=== PATIENT | female | born 1945 | race Caucasian/White ===

== ENCOUNTER 2016-11-13 06:29 | Day surgery (SDC) | payer MEDICARE, OTHER ==
--- NOTE | ~2016-11-13 | EGD ---
EGD REPORT [facility] [address] [place] [address] NAME: SUSIE GAY : [birth year] STATUS : REG [facility] [id number] AGE: 71 ADM/REG DATE : 11/13/16 MR#: [id number] REPORT SERV DATE: 11/13/16 DICTATED BY: BETSY STEVENSON DATE: 11/13/16 REPORT STATUS : Draft TRANSCRIBED BY: [facility] DATE: 11/13/16 Endoscopy Center Patient Name: Susie Gay Date of : 1945 Attending MD: BETSY STEVENSON, Procedure Date No Time: 11/13/2016 Procedure: Upper EUS Indications: Submucosal tumor versus extrinsic mass found on endoscopy. History of prior resected duodenal bulb carcinoid. Referring MD: SERENA CARTER Complications: No immediate complications. Estimated blood loss: None. Procedure: Pre-Anesthesia Assessment: - ASA Grade Assessment: II - A patient with mild systemic disease. After obtaining informed consent, the endoscope was passed under direct vision. Throughout the procedure, the patient's blood pressure, pulse, and oxygen saturations were monitored continuously. The Endoscope was introduced through the mouth, and advanced to the second part of duodenum. The GIF [id number] was introduced through the mouth, and advanced to the second part of duodenum. Findings: Endoscopic Finding : The examined esophagus was endoscopically normal. The entire examined stomach was endoscopically normal. The cardia and gastric fundus were normal on retroflexion. A single 6 mm sessile polyp with was found in the duodenal bulb. This was on the edge of the prior scar. Biopsies were taken with a cold forceps for histology. Verification of patient identification for the specimen was done. Estimated blood loss was minimal. A single medium-sized scar was found in the duodenal bulb. Biopsies were taken with a cold forceps for histology. Verification of patient identification for the specimen was done. Estimated blood loss was minimal. Endosonographic Finding : There was no sign of significant endosonographic abnormality in the esophagus. Endosonographic images of the stomach were unremarkable. An oval intramural (subepithelial) lesion was found in the duodenal bulb. The lesion was hypoechoic. Endosonographically, the lesion appeared to originate from within the submucosa (Layer 3). The lesion also appeared to involve the following wall layer(s): muscularis propria EGD REPORT [place] [address] [facility] [place]. [address] NAME: SUSIE GAY : [birth year] STATUS : REG [facility] PAT#: [id number] AGE: 71 ADM/REG DATE : 11/13/16 MR#: [id number] REPORT SERV DATE: 11/13/16 DICTATED BY: BETSY STEVENSON DATE: 11/13/16 REPORT STATUS : Draft TRANSCRIBED BY: [employer] DATE: 11/13/16 (Layer 4). The lesion measured 8 mm (in maximum thickness). The lesion also measured 4 mm in diameter. There was no sign of significant endosonographic abnormality in the entire pancreas. The pancreas was well visualized, no pathologic lymphadenopathy, no masses, no calcifications, the pancreatic duct was well visualized from ampulla to tail, the pancreatic duct was regular in contour. There was no sign of significant endosonographic abnormality in the common bile duct. No lymphadenopathy seen. Impression: - Normal esophagus. - Normal stomach. - A single duodenal polyp. Biopsied. - Duodenal scar. - There was no sign of significant pathology in the esophagus. - Endosonographic images of the stomach were unremarkable. - An intramural (subepithelial) lesion was found in the duodenal bulb. The lesion appeared to originate from within the submucosa (Layer 3). - There was no sign of significant pathology in the entire pancreas. - There was no sign of significant pathology in the common bile duct. Recommendation: - Await path results. - Return to previous diet. - Continue present medications. - Given there appears to be residual carcinoid on EUS with involvement of the muscularis propria she will likely need surgical excision. Procedure Code(s): --- Professional --- 51216, Esophagogastroduodenoscopy, flexible, transoral; with endoscopic ultrasound examination, including the esophagus, stomach, and either the duodenum or a surgically altered stomach where the jejunum is examined distal to the anastomosis Diagnosis Code(s): --- Professional --- K31.7, Polyp of stomach and duodenum K31.89, Other diseases of stomach and duodenum K31.9, Disease of stomach and duodenum, unspecified K92.9, Disease of digestive system, unspecified EGD REPORT [facility] [address] [address] NAME: SUSIE GAY : [birth year] STATUS : REG [facility] PAT#: [id number] AGE: 71 ADM/REG DATE : 11/13/16 MR#: [id number] REPORT SERV DATE: 11/13/16 DICTATED BY: BETSY STEVENSON DATE: 11/13/16 REPORT STATUS : Draft TRANSCRIBED BY: [employer] DATE: 11/13/16 CPT copyright 2013 [employer]. All rights reserved. The codes documented in this report are preliminary and upon hcc coders review may be revised to meet current compliance requirements. BETSY STEVENSON, 11/13/2016 9:00 AM Number of Addenda: 0 Note Initiated On: 11/13/2016 8:24 AM Scope Withdrawal Time 0 hours 0 minutes 0 seconds [facility] [address] [address]
[~2016-11-13 06:29] MED LIST: HYZAAR 50/12.51 TAB PO; PROTONIX PO
[2016-11-13 07:11] LABS: BUN (BLOOD UREA NITROGEN) 30 MG/DL (6-23); CALCIUM, SERUM 9.1 MG/DL (8.5-10.4); CHLORIDE, SERUM 105 MMOL/L (96-112); CO2 (CARBON DIOXIDE) 27 MMOL/L (24-34); CREATININE 1.05 MG/DL (0.55-1.02); GFR AFRICAN AMERICAN 62 ML/MIN (>=60); GFR NON AFRICAN AMERICAN 53 ML/MIN (>=60); GLUCOSE, SERUM 102 MG/DL (60-99); SODIUM, SERUM 140 MMOL/L (135-148)
[2016-11-13 07:13] LABS: POTASSIUM, SERUM 3.9 MMOL/L (3.5-5.3)
== END 2016-11-13 23:59 | disposition home or self-care (01) ==
LOC: DMU 06:29
PROVIDERS: Anesthesiology; Internal Medicine Gastroenterology
PROC: 0DJ08ZZ Inspection of Upper Intestinal Tract, Via Natural or Artificial Opening Endoscopic (ICD-10-PCS; 2016-11-13)
PROC: BD47ZZZ Ultrasonography of Gastrointestinal Tract (ICD-10-PCS; 2016-11-13)
PROC: 0DB98ZX Excision of Duodenum, Via Natural or Artificial Opening Endoscopic, Diagnostic (ICD-10-PCS; principal; 2016-11-13 08:00)
DX: K29.80 Duodenitis without bleeding (principal); K31.7 Polyp of stomach and duodenum; K21.9 Gastro-esophageal reflux disease without esophagitis; I10 Essential (primary) hypertension; Z79.899 Other long term (current) drug therapy; Z97.2 Presence of dental prosthetic device (complete) (partial); Z90.49 Acquired absence of other specified parts of digestive tract; Z98.890 Other specified postprocedural states; Z96.693 Finger-joint replacement, bilateral
CPT/HCPCS: 80048; 88305

== ENCOUNTER 2017-01-19 06:03 | Inpatient (IN) | payer MEDICARE, OTHER ==
[2017-01-12 09:40] LABS: BASOPHILS 0.3 %; BASOPHILS ABSOLUTE 0.02 10/3/uL (0.0-0.16); EOSINOPHILS 2.1 %; EOSINOPHILS ABSOLUTE 0.15 10/3/uL (0.0-0.53); HEMATOCRIT 40.8 % (36.0-48.0); HEMOGLOBIN 13.1 g/dL (12.0-16.0); IMMATURE GRANULOCYTES 0.1 %; IMMATURE GRANULOCYTES ABSOLUTE 0.01 10/3/uL (0.0-0.11); LYMPHOCYTES 29.9 %; LYMPHOCYTES ABSOLUTE 2.13 10/3/uL (0.67-4.30); MEAN CORPUS HGB CONC 32.1 g/dL (32.0-36.0); MEAN CORPUSCULAR HEMOGLOB 28.6 pg (26.0-34.0); MEAN CORPUSCULAR VOLUME 89.1 fL (80-100); MEAN PLATELET VOLUME 9.4 fL (9.2-13.0); NEUTROPHILS 60.6 %; NEUTROPHILS ABSOLUTE 4.32 10/3/uL (2.02-8.40); PLATELET COUNT 272 10/3/uL (150-400); RBC DISTRIBUTION WIDTH 13.3 % (12.0-16.0); RED CELL COUNT 4.58 10/6/uL (4.0-5.6); WHITE BLOOD CELLS 7.1 10/3/uL (4.5-10.5)
[2017-01-12 09:45] LABS: MANUAL DIFF NO %
[2017-01-12 09:57] LABS: A/G RATIO 0.9 (0.7-1.9); ALBUMIN 3.4 G/DL (3.5-5.0); ALKALINE PHOSPHATASE 90 U/L (45-117); CHLORIDE, SERUM 109 MMOL/L (96-112); CO2 (CARBON DIOXIDE) 31 MMOL/L (24-34); CREATININE 0.76 MG/DL (0.55-1.02); GFR AFRICAN AMERICAN 91 ML/MIN (>=60); GFR NON AFRICAN AMERICAN 79 ML/MIN (>=60); GLOBULIN 3.8 G/DL (2.5-4.1); GLUCOSE, SERUM 89 MG/DL (60-99); POTASSIUM, SERUM 3.8 MMOL/L (3.5-5.3); SGPT(ALT) 20 U/L (5-65); SODIUM, SERUM 145 MMOL/L (135-148); TOTAL BILIRUBIN 1.1 MG/DL (0-1.2); TOTAL PROTEIN 7.2 G/DL (6.0-8.5)
[2017-01-12 10:03] LABS: BUN (BLOOD UREA NITROGEN) 19 MG/DL (6-23)
[2017-01-12 10:04] LABS: SGOT(AST) 22 U/L (5-40)
--- NOTE | ~2017-01-19 | DS ---
Discharge Summary [facility] [address] [place]. [address] NAME: SUSIE THAKKAR : 45 STATUS : DIS IN PAT#: [id number] AGE: 71 ADM/REG DATE : 01/19/17 MR#: [id number] REPORT SERV DATE: 02/06/17 DICTATED BY: AICHA MCINTYRE III DATE: 02/05/17 REPORT STATUS : Draft TRANSCRIBED BY: MODLuciana DATE: 02/05/17 Data Collection from hospitalization DISCHARGE DIAGNOSES: 1. 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 2. Hypertension. 3. Hyperlipidemia. 4. Osteoporosis. CONSULTATIONS: None. PROCEDURES PERFORMED: Distal gastrectomy with resection of the first portion of the duodenum and gastric jejunostomy on 01/19/2017. PATHOLOGY: Distal stomach and proximal duodenum segmental resection - neuroendocrine tumor of the duodenum. MEDICATIONS: Hyzaar one tablet daily, Percocet 7.5/325 one tablet every eight hours as needed, and Protonix 40 mg daily. CONDITION AT DISCHARGE: Stable. DISPOSITION: The patient was discharged home on a post gastrectomy diet with activities as instructed. She would follow up with me on 02/07/2017. HOSPITAL COURSE: This is a 71-year-old female who had recently undergone an endoscopy and was found to have a 2 cm carcinoid tumor located in the duodenal bulb. This had been resected endoscopically, but on followup EUS, there was noted to be a submucosal nodule which was of concern for possible persistent as a carcinoid tumor. Based on this, it was felt that distal gastrectomy with resection of the first portion of the duodenum was indicated. Treatment options were discussed and it was elected to proceed with surgical intervention. She was admitted to the hospital at this time for further evaluation and treatment. Upon admission, she was taken to the operating room where she underwent the above-mentioned procedure. She tolerated this well, and there were no complications. On postop day #1, she had no new complaints. She was alert and comfortable. Her abdomen was soft. Grier catheter was removed. She was encouraged to use the BUSINESS EXECUTIVE. On postop day #2, she had no new complaints. She did have some urinary retention. A Grier catheter was replaced. She was comfortable. She was able to be up sitting in a chair. She did have some itching. Her epidural remained in place. On 01/22/2017, she was progressing well. NG tube was in place with gravity drainage. The epidural catheter was removed and the tip was intact. She was evaluated by Physical Therapy. On 01/23/2017, she had no complaints. She remained afebrile. The NG tube was removed. Grier catheter was discontinued. O2 was being weaned. Clear liquids were being given. The next day, she had no complaints. She was tolerating clear liquids. We advanced her diet. IV fluids were decreased. Discharge planning was performed. On 01/25/2017, she felt well Discharge Summary [place] [address] [place]. [address] NAME: SUSIE THAKKAR : 45 STATUS : DIS IN PAT#: [id number] AGE: 71 ADM/REG DATE : 01/19/17 MR#: [id number] REPORT SERV DATE: 02/06/17 DICTATED BY: AICHA MCINTYRE III DATE: 02/05/17 REPORT STATUS : Draft TRANSCRIBED BY: MODL DATE: 02/05/17 and wanted to go home. She was passing stool. She was tolerating her diet. Drains were discontinued. Discharge instructions were given. Due to her improved and stable condition, she was discharged home with the above-stated instructions. Information collected by: Irene Vidales I submit the above information as my discharge summary. TG/ALBERT Aicha Mcintyre III, M.D. / [id number] CC: Claudia Reyes III, MD
--- NOTE | ~2017-01-19 | OP ---
Record Of Operation [facility] [address] [place]. 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 PROCEDURES: Distal gastrectomy with resection of the first portion of duodenum and gastrojejunostomy. SURGEON: Aicha Mcintyre M.D. ANESTHESIA: General with intubation. COMPLICATIONS: None. ESTIMATED BLOOD LOSS: 50 mL. SPECIMENS: Distal stomach and proximal duodenum. DRAINS: Cortes-Stephenson in abdominal cavity, Gisselle in subcutaneous tissue. LAP AND SPONGE COUNT: Correct x3. BRIEF HISTORY: This 71-year-old female recently underwent an upper endoscopy and was found to have a 2 cm carcinoid tumor located in the duodenal bulb. This had been resected endoscopically, but on followup EUS, there was noted to be a submucosal nodule which was of concern for possible persistence of the carcinoid tumor. Based on this, it was felt that distal gastrectomy with resection of the first portion of the duodenum was indicated. This procedure, the risks, benefits, alternatives, including but not limited to the risk for bleeding; infection; enterotomy; injury to any abdominal structure; postop small bowel obstruction; ileus; incisional hernia; dehiscence; anastomotic leak resulting in peritonitis, sepsis, and ; duodenal stump leak resulting in peritonitis, sepsis, and ; gastroparesis; gastric outlet obstruction; efferent or afferent limb syndrome; postoperative dumping; and unforeseen complications including deep venous thrombosis; pulmonary embolus; myocardial infarction; stroke; pneumonia; and were fully and completely explained to the patient at length prior to the surgery. The fact that this was a major operation with risk for major morbidity and mortality was explained. The expected length of recovery was explained. The option of nonoperative management with observation only was offered to the patient, but declined. The patient's questions were answered. She fully understood the risks and agreed to the surgery as planned. DESCRIPTION OF PROCEDURE: After being properly identified, and after discussing the risks and benefits of the surgery with her and her family again in the preoperative area, she was taken to the operating room, and placed in the supine position on the operating room table. General anesthesia was administered. She was intubated without difficulty. The abdomen was Record Of Operation [address] [address] NAME: SUSIE THAKKAR : 45 STATUS : ADM IN PAT#: [id number] AGE: 71 ADM/REG DATE : 01/19/17 MR#: [id number] REPORT SERV DATE: 01/19/17 DICTATED BY: AICHA MCINTYRE III DATE: 01/19/17 REPORT STATUS : Draft TRANSCRIBED BY: ALBERT DATE: 01/19/17 prepped and draped sterilely in the usual fashion after a Grier catheter was inserted. After an appropriate "time-out" per JCAHO standards, a midline incision was made from just beneath the xiphoid process to just above the umbilicus. The incision was continued through the subcutaneous tissue. Hemostasis was controlled with the cautery. The incision was continued through the fascia. The abdominal cavity was entered. The abdomen was inspected. There was no evidence for carcinomatosis or peritoneal implants. The liver was normal. Using sharp dissection, the peritoneal reflection to the first and second portion of the duodenum laterally was divided. A Yanelis maneuver was performed as the duodenum was retracted medially. There were adhesions between the duodenum and the liver from the patient's previous cholecystectomy, and these were divided. We entered the lesser sac by dividing the gastrocolic ligament in the mid body of the stomach. We selected a point for division of the distal stomach near the incisura. The greater curve of the stomach was then exposed from this point distally using Harmonic scalpel. Similarly, the lesser curve of the stomach was exposed by dividing the lesser omentum also with the Harmonic scalpel. We divided the distal stomach at the level of incisura, at the junction between the antrum and body of the stomach. This was done with the OBIE stapler. We continued our dissection distally, to well beyond the pylorus. We freed up and mobilized the duodenum to the second portion of the duodenum, to near its junction with the head of the pancreas. The duodenum was divided at this point, as far distally as possible and safe as possible, using a TA 30 stapler. The duodenal stump was oversewn carefully with interrupted 3-0 silk sutures. This resulted in good inversion of the duodenal stump. The specimen was removed and sent to Pathology. It was interpreted showing no obvious residual tumor. We then performed and end-gastric to side jejunal anastomosis in a Billroth II fashion. A window was made in the mesentery to the transverse colon and the proximal jejunum, just beyond the ligament of Treitz was brought through this window. The anastomosis was performed using two layers, with interrupted 3-0 silk sutures on the outer posterior layer, running 3-0 chromic suture on the inner layer, and interrupted 3-0 silk sutures on the outer anterior layer. This was done using the majority of the divided stomach. Anastomosis was some 3 cm long. It was patent to palpation. It was not twisted or kinked in any way. It was not under any tension. The anastomosis was secured to the mesentery of the transverse colon with several 3-0 silk sutures. Both afferent and efferent limbs were inspected to be certain they were not twisted or kinked or obstructed in any way. The right upper quadrant was irrigated copiously with saline. Hemostasis was assured. Evicel glue was placed over the duodenal stump. A Cortes-Stephenson drain was brought through a separate stab wound to the right incision placed in the right upper quadrant. The fascia was closed with a running looped #1 PDS suture after assuring hemostasis. The subcutaneous tissue was closed with a running 3-0 chromic suture over a Gisselle drain which was brought out through the inferior aspect of the incision. The skin was closed with a running subcuticular 4-0 Monocryl stitch. Dressings were applied. Anesthesia was reversed, and the patient was taken to the recovery room in stable condition. She tolerated the procedure well. Her family was informed the results of the surgery. The patient will remain in the hospital for postoperative care. Record Of Operation [facility] [address] [facility] [place]. [address] NAME: SUSIE THAKKAR : 45 STATUS : ADM IN [facility]#: [id number] AGE: 71 ADM/REG DATE : 01/19/17 MR#: [id number] REPORT SERV DATE: 01/19/17 DICTATED BY: AICHA MCINTYRE III DATE: 01/19/17 REPORT STATUS : Draft TRANSCRIBED BY: ALBERT DATE: 01/19/17 DAVID/ALBERT Aicha Mcintyre III, M.D. / [id number] CC: Claudia Reyes III, MD
--- NOTE | ~2017-01-19 | PREOPHP ---
PreOp History and Physical [place] [id number] [facility] [place]. [address] NAME: SUSIE THAKKAR : 45 STATUS : PRE IN PAT#: [id number] AGE: 71 ADM/REG DATE : MR#: [id number] REPORT SERV DATE: 01/19/17 DICTATED BY: AICHA MCINTYRE III DATE: 12/16/16 REPORT STATUS : Draft TRANSCRIBED BY: MODL DATE: 12/16/16 HISTORY OF PRESENT ILLNESS: This 71-year-old female comes to the operating room for a partial distal gastrectomy with resection of the duodenal bulb for biopsy-proven carcinoid tumor of the duodenal bulb. The patient complains of chronic history of vague upper abdominal pain. Late last year, she was found to have a carcinoid tumor of the duodenum. This was described as a 2 cm tumor. It was partly resected endoscopically. A repeat followup endoscopy performed recently with EUS showed no mucosal abnormality. However, there was noted be a submucosal nodule in the duodenal bulb. This is strongly suspicious endoscopically for possible residual or recurrence of her carcinoid tumor. Even on the biopsy, the mucosa over this is normal, there is a definite submucosal nodule seen which is of concern for recurrence or persistence of her carcinoid tumor based on the size of the tumor seen originally. The patient has been given the option of observation and expectant management regarding this versus surgical resection. She has chosen to have a surgical resection which will involve distal gastrectomy with resection of the proximal duodenal bulb. The fact that this is a major operation with risk for major morbidity and mortality has been explained. The patient's questions have been answered. She understands the risks and agrees to surgery as planned. It should be noted the patient had EGD on 04/21/[address] Mckinnon in [place]. This showed gastritis and a 3 mm raised mucosal lesion in the duodenum. Biopsy showed this to be a low-grade neuroendocrine tumor. She underwent endoscopic resection of this lesion on 07/18/2016. Another endoscopy was performed with EUS on 11/13/2016. This last biopsy showed only duodenitis, but there was again a submucosal nodule noted in the duodenum with concern for a persistence of her carcinoid tumor. PAST MEDICAL HISTORY: 1. Hypertension. 2. Hyperlipidemia. 3. Osteoporosis. MEDICATIONS: Losartan, oxybutynin, Protonix. PAST SURGICAL HISTORY: Include cholecystectomy, carpal tunnel syndrome, and caesarean section. FAMILY HISTORY: Positive for heart disease. SOCIAL HISTORY: No history of tobacco or alcohol use. ALLERGIES: NONE. REVIEW OF SYSTEMS: The patient complains of vague abdominal pain. 14-point review of systems is otherwise unremarkable. PHYSICAL EXAMINATION: GENERAL: This is a female, in no acute distress. She is alert and oriented x3. PreOp History and Physical [address] [address] NAME: SUSIE THAKKAR : 45 STATUS : PRE [facility]#: [id number] AGE: 71 ADM/REG DATE : MR#: [id number] REPORT SERV DATE: 01/19/17 DICTATED BY: IACHA MCINTYRE III DATE: 12/16/16 REPORT STATUS : Draft TRANSCRIBED BY: ALBERT DATE: 12/16/16 VITAL SIGNS: Blood pressure 130/86, pulse 76, temp 97. HEENT: Unremarkable. Cranial nerves 2 through 12 are normal. LUNGS: Clear. CARDIAC: Normal. ABDOMEN: Soft. Nontender. No masses. EXTREMITIES: Normal with no edema. LABORATORY DATA: Upper endoscopy and EUS are as above. Octreotide scan performed on 05/19/2016 shows no evidence for metastatic carcinoid tumor. ASSESSMENT: 1. 71-year-old female with carcinoid tumor of the duodenal bulb, although this has been removed at the mucosal level endoscopic, there may be persistent tumor in the submucosa. It has been explained to the patient that this is uncertain finding and that this submucosal nodule may be benign. The patient understands but comes now for the surgery as planned which will be a distal gastrectomy, proximal duodenal bulb resection. 2. Hypertension. 3. Hyperlipidemia. PLAN: The patient comes now for a distal gastrectomy with resection of the duodenal bulb. This procedure, the risks, benefits, and alternatives, including not limited to the risk for bleeding, infection, enterotomy, injury to any abdominal structure, postop small bowel obstruction, ileus, incisional hernia, dehiscence, anastomotic leak, resulting in peritonitis, sepsis and , gastroparesis, gastric outlet obstruction, duodenal stump leak resulting in peritonitis, sepsis and , pancreatitis, pancreatic injury, common bile duct injury which could be fatal and unforeseen complications including deep venous thrombosis, pulmonary embolus, myocardial infarction, stroke, pneumonia, and , have been fully and completely explained to the patient and family at length prior to surgery. The fact that this is a major operation with risk for major morbidity and mortality has been explained as well as expected length of recovery. The option of nonoperative management has been offered to the patient but declined. The patient's questions have been answered. She clearly understands the risks and agrees to surgery as planned. DAVID/ALBERT Aicha Mcintyre III, M.D. / [id number]
[2017-01-19 07:28] LABS: INTERNATIONAL NORMAL RATI 1.1 UNITS (-); PARTIAL THROMBO TIME 28.7 SEC (22.5-37.2); PROTIME (NOT ORD) 13.7 SEC (12.0-14.5)
[2017-01-20 06:10] LABS: BASOPHILS 0.1 %; BASOPHILS ABSOLUTE 0.01 10/3/uL (0.0-0.16); EOSINOPHILS 0.2 %; EOSINOPHILS ABSOLUTE 0.02 10/3/uL (0.0-0.53); HEMATOCRIT 37.1 % (36.0-48.0); HEMOGLOBIN 11.9 g/dL (12.0-16.0); IMMATURE GRANULOCYTES 0.3 %; IMMATURE GRANULOCYTES ABSOLUTE 0.03 10/3/uL (0.0-0.11); LYMPHOCYTES 12.2 %; LYMPHOCYTES ABSOLUTE 1.18 10/3/uL (0.67-4.30); MEAN CORPUS HGB CONC 32.1 g/dL (32.0-36.0); MEAN CORPUSCULAR HEMOGLOB 28.3 pg (26.0-34.0); MEAN CORPUSCULAR VOLUME 88.3 fL (80-100); MEAN PLATELET VOLUME 9.6 fL (9.2-13.0); MONOCYTES 8.8 %; MONOCYTES ABSOLUTE 0.85 10/3/uL (0.21-1.20); NEUTROPHILS 78.4 %; NEUTROPHILS ABSOLUTE 7.55 10/3/uL (2.02-8.40); PLATELET COUNT 215 10/3/uL (150-400); RBC DISTRIBUTION WIDTH 13.6 % (12.0-16.0); WHITE BLOOD CELLS 9.6 10/3/uL (4.5-10.5)
[2017-01-20 06:17] LABS: CHLORIDE, SERUM 107 MMOL/L (96-112); CO2 (CARBON DIOXIDE) 29 MMOL/L (24-34); CREATININE 0.85 MG/DL (0.55-1.02); GFR AFRICAN AMERICAN 80 ML/MIN (>=60); GFR NON AFRICAN AMERICAN 69 ML/MIN (>=60); POTASSIUM, SERUM 3.9 MMOL/L (3.5-5.3); SODIUM, SERUM 141 MMOL/L (135-148)
[2017-01-20 06:18] LABS: BUN (BLOOD UREA NITROGEN) 9 MG/DL (6-23); CALCIUM, SERUM 7.7 MG/DL (8.5-10.4); GLUCOSE, SERUM 142 MG/DL (60-99)
[2017-01-20 06:19] LABS: MANUAL DIFF NO %
[2017-01-21 06:07] LABS: BASOPHILS 0.2 %; BASOPHILS ABSOLUTE 0.02 10/3/uL (0.0-0.16); HEMATOCRIT 35.5 % (36.0-48.0); HEMOGLOBIN 11.1 g/dL (12.0-16.0); IMMATURE GRANULOCYTES 0.3 %; IMMATURE GRANULOCYTES ABSOLUTE 0.03 10/3/uL (0.0-0.11); LYMPHOCYTES 14.8 %; LYMPHOCYTES ABSOLUTE 1.48 10/3/uL (0.67-4.30); MEAN CORPUS HGB CONC 31.3 g/dL (32.0-36.0); MEAN CORPUSCULAR HEMOGLOB 27.8 pg (26.0-34.0); MEAN PLATELET VOLUME 9.5 fL (9.2-13.0); MONOCYTES 9.3 %; MONOCYTES ABSOLUTE 0.93 10/3/uL (0.21-1.20); NEUTROPHILS 74.4 %; NEUTROPHILS ABSOLUTE 7.44 10/3/uL (2.02-8.40); PLATELET COUNT 190 10/3/uL (150-400); RBC DISTRIBUTION WIDTH 13.5 % (12.0-16.0); RED CELL COUNT 3.99 10/6/uL (4.0-5.6)
[2017-01-21 06:08] LABS: MANUAL DIFF NO %
[2017-01-21 06:18] LABS: BUN (BLOOD UREA NITROGEN) 4 MG/DL (6-23); CALCIUM, SERUM 8.1 MG/DL (8.5-10.4); CHLORIDE, SERUM 107 MMOL/L (96-112); CO2 (CARBON DIOXIDE) 30 MMOL/L (24-34); GFR AFRICAN AMERICAN 101 ML/MIN (>=60); GFR NON AFRICAN AMERICAN 87 ML/MIN (>=60); GLUCOSE, SERUM 127 MG/DL (60-99); POTASSIUM, SERUM 3.7 MMOL/L (3.5-5.3); SODIUM, SERUM 140 MMOL/L (135-148)
[2017-01-22 06:07] LABS: BASOPHILS 0.1 %; BASOPHILS ABSOLUTE 0.01 10/3/uL (0.0-0.16); EOSINOPHILS 3.2 %; EOSINOPHILS ABSOLUTE 0.27 10/3/uL (0.0-0.53); HEMATOCRIT 35.5 % (36.0-48.0); HEMOGLOBIN 11.4 g/dL (12.0-16.0); IMMATURE GRANULOCYTES 0.1 %; IMMATURE GRANULOCYTES ABSOLUTE 0.01 10/3/uL (0.0-0.11); LYMPHOCYTES ABSOLUTE 1.34 10/3/uL (0.67-4.30); MEAN CORPUS HGB CONC 32.1 g/dL (32.0-36.0); MEAN CORPUSCULAR HEMOGLOB 28.7 pg (26.0-34.0); MEAN CORPUSCULAR VOLUME 89.4 fL (80-100); MEAN PLATELET VOLUME 9.5 fL (9.2-13.0); MONOCYTES 8.7 %; MONOCYTES ABSOLUTE 0.73 10/3/uL (0.21-1.20); NEUTROPHILS 71.9 %; PLATELET COUNT 200 10/3/uL (150-400); RBC DISTRIBUTION WIDTH 13.5 % (12.0-16.0); RED CELL COUNT 3.97 10/6/uL (4.0-5.6); WHITE BLOOD CELLS 8.4 10/3/uL (4.5-10.5)
[2017-01-22 06:09] LABS: MANUAL DIFF NO %
[2017-01-22 06:19] LABS: BUN (BLOOD UREA NITROGEN) 4 MG/DL (6-23); CALCIUM, SERUM 8.2 MG/DL (8.5-10.4); CHLORIDE, SERUM 105 MMOL/L (96-112); CO2 (CARBON DIOXIDE) 31 MMOL/L (24-34); CREATININE 0.77 MG/DL (0.55-1.02); GFR AFRICAN AMERICAN 90 ML/MIN (>=60); GFR NON AFRICAN AMERICAN 78 ML/MIN (>=60); GLUCOSE, SERUM 110 MG/DL (60-99); POTASSIUM, SERUM 3.7 MMOL/L (3.5-5.3); SODIUM, SERUM 139 MMOL/L (135-148)
[2017-01-23 06:38] LABS: BASOPHILS 0.2 %; BASOPHILS ABSOLUTE 0.01 10/3/uL (0.0-0.16); EOSINOPHILS 3.6 %; EOSINOPHILS ABSOLUTE 0.23 10/3/uL (0.0-0.53); HEMATOCRIT 37.4 % (36.0-48.0); HEMOGLOBIN 12.2 g/dL (12.0-16.0); IMMATURE GRANULOCYTES 0.3 %; IMMATURE GRANULOCYTES ABSOLUTE 0.02 10/3/uL (0.0-0.11); LYMPHOCYTES 18.4 %; LYMPHOCYTES ABSOLUTE 1.19 10/3/uL (0.67-4.30); MANUAL DIFF NO %; MEAN CORPUS HGB CONC 32.6 g/dL (32.0-36.0); MEAN CORPUSCULAR HEMOGLOB 28.9 pg (26.0-34.0); MEAN CORPUSCULAR VOLUME 88.6 fL (80-100); MEAN PLATELET VOLUME 9.2 fL (9.2-13.0); MONOCYTES 10.1 %; MONOCYTES ABSOLUTE 0.65 10/3/uL (0.21-1.20); NEUTROPHILS 67.4 %; NEUTROPHILS ABSOLUTE 4.35 10/3/uL (2.02-8.40); PLATELET COUNT 233 10/3/uL (150-400); RED CELL COUNT 4.22 10/6/uL (4.0-5.6); WHITE BLOOD CELLS 6.5 10/3/uL (4.5-10.5)
[2017-01-23 06:57] LABS: BUN (BLOOD UREA NITROGEN) 4 MG/DL (6-23); CALCIUM, SERUM 8.8 MG/DL (8.5-10.4); CHLORIDE, SERUM 104 MMOL/L (96-112); CO2 (CARBON DIOXIDE) 29 MMOL/L (24-34); CREATININE 0.62 MG/DL (0.55-1.02); GFR AFRICAN AMERICAN 105 ML/MIN (>=60); GFR NON AFRICAN AMERICAN 91 ML/MIN (>=60); GLUCOSE, SERUM 129 MG/DL (60-99); SODIUM, SERUM 139 MMOL/L (135-148)
[2017-01-23 06:58] LABS: POTASSIUM, SERUM 3.9 MMOL/L (3.5-5.3)
[2017-01-24 07:09] LABS: BASOPHILS 0.2 %; BASOPHILS ABSOLUTE 0.02 10/3/uL (0.0-0.16); EOSINOPHILS 2.5 %; EOSINOPHILS ABSOLUTE 0.24 10/3/uL (0.0-0.53); HEMATOCRIT 36.8 % (36.0-48.0); IMMATURE GRANULOCYTES 0.2 %; IMMATURE GRANULOCYTES ABSOLUTE 0.02 10/3/uL (0.0-0.11); LYMPHOCYTES 8.9 %; LYMPHOCYTES ABSOLUTE 0.85 10/3/uL (0.67-4.30); MEAN CORPUS HGB CONC 32.6 g/dL (32.0-36.0); MEAN CORPUSCULAR HEMOGLOB 28.8 pg (26.0-34.0); MEAN CORPUSCULAR VOLUME 88.2 fL (80-100); MEAN PLATELET VOLUME 9.3 fL (9.2-13.0); MONOCYTES 7.5 %; MONOCYTES ABSOLUTE 0.72 10/3/uL (0.21-1.20); NEUTROPHILS 80.7 %; NEUTROPHILS ABSOLUTE 7.72 10/3/uL (2.02-8.40); PLATELET COUNT 255 10/3/uL (150-400); RBC DISTRIBUTION WIDTH 13.2 % (12.0-16.0); RED CELL COUNT 4.17 10/6/uL (4.0-5.6)
[2017-01-24 07:10] LABS: MANUAL DIFF NO %; WHITE BLOOD CELLS 9.6 10/3/uL (4.5-10.5)
[2017-01-24 07:22] LABS: BUN (BLOOD UREA NITROGEN) 3 MG/DL (6-23); CALCIUM, SERUM 8.9 MG/DL (8.5-10.4); CHLORIDE, SERUM 105 MMOL/L (96-112); CO2 (CARBON DIOXIDE) 29 MMOL/L (24-34); CREATININE 0.58 MG/DL (0.55-1.02); GFR AFRICAN AMERICAN 107 ML/MIN (>=60); GFR NON AFRICAN AMERICAN 93 ML/MIN (>=60); GLUCOSE, SERUM 123 MG/DL (60-99); POTASSIUM, SERUM 3.8 MMOL/L (3.5-5.3); SODIUM, SERUM 140 MMOL/L (135-148)
[2017-01-25] MEDS ORDERED: PERCOCET 7.5/321 TAB PO (08:58)
== END 2017-01-25 16:28 | disposition home or self-care (01) | DRG 327 ==
LOC: SDC/OF 06:03 → PACU 10:25 → 5SO 11:17
PROVIDERS: Surgery
PROC: 0D160ZA Bypass Stomach to Jejunum, Open Approach (ICD-10-PCS; 2017-01-19)
PROC: 3E0R3GC Introduction of Other Therapeutic Substance into Spinal Canal, Percutaneous Approach (ICD-10-PCS; 2017-01-19)
PROC: 0DB60ZZ Excision of Stomach, Open Approach (ICD-10-PCS; principal; 2017-01-19 07:45)
DX: D3A.010 Benign carcinoid tumor of the duodenum (principal); K91.89 Other postprocedural complications and disorders of digestive system; K56.7 Ileus, unspecified; I10 Essential (primary) hypertension; E78.5 Hyperlipidemia, unspecified; M81.0 Age-related osteoporosis without current pathological fracture; Z79.899 Other long term (current) drug therapy; Z90.49 Acquired absence of other specified parts of digestive tract; Z98.890 Other specified postprocedural states; Z82.49 Family history of ischemic heart disease and other diseases of the circulatory system
CPT/HCPCS: 36415; 71010; 71020; 80048; 80053; 85025; 85610; 85730; 86850; 86900; 86901; 88309; 88341; 88342; 88360; 93005; 97110-GP; 97116-GP; 97161-GP; A9270-GY; C1751; C1769; C9113; G8978-CK-GP; G8979-CI-GP; J0690; J2250; J2300; J2405; J2710; J2765; J3010; P9045